=== PATIENT | female | born 1960 | race African-American/Black ===

== ENCOUNTER 2018-06-02 16:20 | Emergency (ER) | payer MEDICARE ==
[~2018-06-02] VITALS: Ht 175.3 cm; Wt 97.1 kg
[2018-06-02] MEDS ORDERED: IBUPROFEN 600 MG TAB PO STA (17:25)
[2018-06-02] MEDS ORDERED: CYCLOBENZAPRINE10 MG PO (18:19)
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
== END 2018-06-02 18:38 | disposition home or self-care (01) ==
LOC: FSED 16:20
DX: S20.212A Contusion of left front wall of thorax, initial encounter (principal); V43.52XA Car driver injured in collision with other type car in traffic accident, initial encounter; Y92.488 Other paved roadways as the place of occurrence of the external cause; E03.4 Atrophy of thyroid (acquired)
CPT/HCPCS: 71046; 93005; 99284